=== PATIENT | female | born 1960 | race Caucasian/White ===

== ENCOUNTER 2017-03-29 11:51 | Emergency (ER) | payer MEDICAID ==
[2017-03-29 12:01] VITALS: TEMP 98.6; BMI 35.2
--- NOTE | 2017-03-29 12:23 | ED PDOC ---
Arrival/HPI - General Chief Complaint: Breast Problem Time Seen by Provider: 03/29/17 12:14 Historian: Patient - History of Present Illness Narrative History of Present Illness (Text): 03/29/17 12:19 A 56 year old female, who denies any past medical history, presents to the emergency department complaining of retrosternal chest pain since earlier this morning. History obtained through scribe who translated for patient. Patient reports she had a mammogram performed today but does not believe that is whats causing her pain. She is also concerned of right upper extremity pain for 1 week. Patient denies any injury, trauma, breast discomfort, fever, chills, nausea, vomiting, diarrhea, abdominal pain, shortness of breath or any other complaints. PMD: Dr. Orozco Time/Duration: 1 week (RUE pain), Other (chest pain this morning) Symptom Course: Unchanged Quality: Other Context: Other Past Medical History - Provider Review Nursing Documentation Reviewed: Yes - Past History Past History: No Previous - Infectious Disease Hx of Infectious Diseases: None - Tetanus Immunization Tetanus Immunization: Unknown - Reproductive Menopause: Yes - Past Medical History Past Medical History: No Previous - Cardiac Hx Pacemaker: No - Neurological Hx Paralysis: No - Hematological/Oncological Hx Blood Transfusions: No Hx Blood Transfusion Reaction: No - Musculoskeletal/Rheumatological Hx Musculoskeletal Disorders: Yes - Psychiatric Hx Emotional Abuse: No Hx Physical Abuse: No Hx Substance Use: No - Past Surgical History Past Surgical History: No Previous - Anesthesia Hx Anesthesia Reactions: No Hx Malignant Hyperthermia: No - Suicidal Assessment Feels Threatened In Home Enviroment: No Family/Social History - Physician Review Nursing Documentation Reviewed: Yes Family/Social History: No Known Family HX Smoking Status: Former Smoker Hx Alcohol Use: No Hx Substance Use: No Hx Substance Use Treatment: No Allergies/Home Meds Allergies/Adverse Reactions: Allergies No Known Allergies Allergy (Verified 03/29/17 12:01) Home Medications: Home Meds Medication Instructions Recorded Confirmed No Known Home Med 03/29/17 03/29/17 Physical Exam - Physical Exam Narrative Physical Exam (Text): - Review of Systems Constitutional: Normal. absent: Fatigue, Weight Change, Fevers Eyes: Normal ENT: Normal Respiratory: Normal absent: SOB, Cough, Sputum Cardiovascular: (+) Chest pain absent: Palpitations, Syncope Gastrointestinal: Normal absent: Abdominal pain, Diarrhea, Nausea, Vomiting Genitourinary: Normal. absent: Dysuria, Frequency, Hematuria Musculoskeletal: (+) RUE pain absent: Arthralgias, Back Pain, Neck Pain Skin: Normal Neurological: Normal absent: Focal Weakness Endocrine: Normal Hemo/Lymphatic: Normal Psychiatric: Normal - Physical exam Patient appears age appropriate, speaking full sentences without difficulty - Systems Exam Head: Present: Atraumatic, Normocephalic Pupils: Present: PERRL Extraocular Muscles: Present: EOMI Conjunctiva: Present: Normal Mouth: Present: Moist Mucous Membranes Neck: Present: Normal Range of Motion. No: MIDLINE TENDERNESS, Paraspinal Tenderness Respiratory/Chest: Present: Clear to Auscultation, Good Air Exchange. No: Respiratory Distress, Accessory Muscle Use, Tachypnic Cardiovascular: Present: Regular Rate and Rhythm, Normal S1, S2, Peripheral Pulses Present. No: Murmurs Abdomen: Present: Normal Bowel Sounds, No: Tenderness, Peritoneal Signs, Rebound, Guarding, Distention Back: Present: Normal Inspection. No: Midline Tenderness, Paraspinal Tenderness Upper Extremity: Present: Normal Inspection. RUE with full active and passive ROM, distal neurovasc fully intact, 5/5 strength No: Cyanosis, Edema Lower Extremity: Present: Normal Inspection. No: Edema Neurological: Present: GCS=15, Speech Normal, cranial nerves II through XII fully intact with no cerebellar abnormality, neuro-sensory fully intact. No focal neurological deficits. Skin: Present: Warm, Dry, Normal Color. No: Rashes Lymphatic: Present: OX3, NI, NC Psychiatric: Present: Alert, Oriented x 3, Normal Insight, Normal Concentration Vital Signs Reviewed: Yes Vital Signs Temp Pulse Resp BP Pulse Ox 03/29/17 11:54 98.6 F 65 16 146/88 96 Temperature: Afebrile Blood Pressure: Normal Pulse: Regular Respiratory Rate: Normal Appearance: Positive for: Well-Appearing, Non-Toxic, Comfortable Pain Distress: None Mental Status: Positive for: Alert and Oriented X 3 Medical Decision Making ED Course and Treatment: 03/29/17 12:18 Impression: A 56 year old female with chest pain. Physical exam unremarkable. Pt denies hx of htn, dm, smoking, dislipidemia. Plan: -- Chest xray -- EKG -- Labs -- Aspirin and Nitroglycerin -- Reassess and disposition Progress Notes: EKG shows NSR at [address]-segment elevations, normal intervals. Interpreted by me. 03/29/17 12:40 Patient states she is unable to stay in the emergency room and is refusing second set of blood work. Patient also refusing to be observed in the hospital. I have discussed the risks of refusing further treatment and testing, patient expresses understanding. Patient states she will follow up with a automatic glove turner and former outpatient. pt's HEART score low. cardiac enzymes and an EKG ordered Patient verbalized understanding that even if these tests are normal, symptoms may still be a warning sign of a future heart attack and it is very important for patient to arrange outpatient cardiology follow up 03/29/17 14:01 Chest X-ray read and interpreted by me, which shows no cardiomegaly, no pneumothorax, no effusions. 03/29/17 14:03 troponin negative pt again declined further obs in the ED and in the hospital states she is pain free and wants to be dc'd home Pt states she understands to return to the ER right away for new or worsening symptoms or for inability to f/u with PMD or specialist as instructed. Patient states that she fully agrees with and understands discharge instructions. States that she agrees with the plan and disposition. Verbalized and repeated discharge instructions and plan. I have given the patient opportunity to ask any additional questions. 03/29/17 14:09 repeat ekg with no evolving changes - Lab Interpretations Lab Results: 03/29/17 12:32 03/29/17 12:32 Lab Results 03/29/17 12:32: Sodium 143, Potassium 3.5 L, Chloride 105, Carbon Dioxide 28, Anion Gap 14, BUN 18, Creatinine 0.7, Est GFR ( Amer) > 60, Est GFR (Non- Af Amer) > 60, Random Glucose 101, Calcium 9.1, Total Bilirubin 0.5, AST 25, ALT 29, Alkaline Phosphatase 76, Lactate Dehydrogenase 466, Total Creatine Kinase 74, Troponin I < 0.01, Total Protein 7.8, Albumin 4.0, Globulin 3.8, Albumin/Globulin Ratio 1.1 03/29/17 12:32: PT 10.6, INR 0.98, APTT 25.7 03/29/17 12:32: WBC 7.1 D, RBC 4.50, Hgb 13.6, Hct 41.2, MCV 91.6, MCH 30.2, MCHC 33.0, RDW 13.4, Plt Count 247, MPV 10.3, Gran % 55.7, Lymph % (Auto) 30.5, Dunn % (Auto) 9.0 H, Eos % (Auto) 3.7, Baso % (Auto) 1.1, Gran # 3.94, Lymph # 2.2, Dunn # 0.6, Eos # 0.3, Baso # 0.08 I have reviewed the lab results: Yes - RAD Interpretation Radiology Orders: 03/29/17 12:18 CHEST PORTABLE [RAD] Stat - Medication Orders Current Medication Orders: Discontinued Medications Aspirin (Aspirin Chewable) 324 mg PO STAT STA Stop: 03/29/17 12:17 Last Admin: 03/29/17 12:34 Dose: 324 mg Nitroglycerin (Nitrostat Sl Tab) 0.3 mg SL STAT STA Stop: 03/29/17 12:17 Last Admin: 03/29/17 12:34 Dose: 0.3 mg - Scribe Statement The provider has reviewed the documentation as recorded by the Lauri Valadez Provider Scribe Attestation: All medical record entries made by the Rickyibkaris were at my direction and personally dictated by me. I have reviewed the chart and agree that the record accurately reflects my personal performance of the history, physical exam, medical decision making, and the department course for this patient. I have also personally directed, reviewed, and agree with the discharge instructions and disposition. Disposition/Present on Arrival - Present on Arrival Any Indicators Present on Arrival: No History of DVT/PE: No History of Uncontrolled Diabetes: No Urinary Catheter: No History of Decub. Ulcer: No History Surgical Site Infection Following: None - Disposition Have Diagnosis and Disposition been Completed?: Yes Diagnosis: Chest pain Disposition: HOME/ ROUTINE Disposition Time: 14:06 Patient Plan: Discharge Patient Problems: Current Active Problems Problem Status Onset Chest pain Acute Condition: GOOD Discharge Instructions (ExitCare): Chest Pain (ED) Additional Instructions: PLEASE RETURN TO THE EMERGENCY DEPARTMENT FOR NEW OR WORSENING SYMPTOMS. RETURN RIGHT AWAY IF YOU CANNOT FOLLOW UP WITH YOUR PRIMARY CARE DOCTOR, CLINIC, OR SPECIALIST IN 1-2 DAYS. Referrals: Thalia Orozco DO [Primary Care Provider] - Follow up with primary Moe Henderson MD [Staff Provider] - Follow up with primary Mau Barreto MD [Staff Provider] - Follow up with primary Forms: [employer] ([place])
[2017-03-29 12:45] LABS: BASO # 0.08 K/mm3 (0.0-2.0); BASO % 1.1 % (0.0-3.0); EOS # 0.3 (0.0-0.7); EOS % 3.7 % (1.5-5.0); GRAN # 3.94 (1.4-6.5); GRAN % 55.7 % (50.0-68.0); HEMOGLOBIN 13.6 gm/dL (12.0-16.0); LYMPH # 2.2 (1.2-3.4); LYMPH % 30.5 % (22.0-35.0); MEAN CELL VOLUME 91.6 fL (80.0-105.0); MEAN CORPUSCULAR HEMOGLOBIN 30.2 pg (25.0-35.0); MEAN PLATELET VOLUME 10.3 fl (7.0-11.0); MONO # 0.6 (0.1-0.6); PLATELET COUNT 247 10^3/uL (120.0-450.0); RED CELL DISTRIBUTION WIDTH 13.4 % (11.5-14.5); WHITE BLOOD COUNT 7.1 10^3/ul (4.5-11.0)
[2017-03-29 12:50] LABS: ALB/GLOB RATIO 1.1 (1.1-1.8); ALT/SGPT 29 U/L (7-56); AST/SGOT 25 U/L (15-39); BLOOD UREA NITROGEN 18 mg/dL (7-21); CALCIUM 9.1 mg/dL (8.4-10.5); GFR AFRICAN-AMERICAN > 60; GFR NON-AFRICAN AMERICAN > 60
[2017-03-29 12:57] LABS: INR 0.98 (0.93-1.08); PARTIAL THROMBOPLASTIN TIME 25.7 Seconds (23.7-30.8); PROTHROMBIN TIME 10.6 Seconds (9.9-11.8)
[2017-03-29 13:12] LABS: TROPONIN I < 0.01 ng/mL
[2017-03-29 14:17] VITALS: BP 94/62; PULSE 79; RESP 18; O2SAT 100
--- NOTE | 2017-03-29 15:18 | CARD ---
APPROVED REPORT EKG Measurement Heart [id number] <Conclusion> Sinus bradycardia Otherwise normal ECG
--- NOTE | 2017-03-29 17:23 | RAD ---
HISTORY: cp COMPARISON: No prior. FINDINGS: LUNGS: No active pulmonary disease. PLEURA: No significant pleural effusion identified, no pneumothorax apparent. CARDIOVASCULAR: Normal. OSSEOUS STRUCTURES: No significant abnormalities. VISUALIZED UPPER ABDOMEN: Normal. OTHER FINDINGS: None. IMPRESSION: No acute cardiopulmonary disease.
== END 2017-03-29 14:20 | disposition home or self-care (01) ==
LOC: ED 11:51
DX: R07.9 Chest pain, unspecified (principal)

== ENCOUNTER 2018-02-14 19:24 | Emergency (ER) | payer MEDICAID ==
[2018-02-14 19:24] VITALS: BMI 35.2
[2018-02-14 19:41] VITALS: TEMP 98.3; O2SAT 98
[2018-02-14] MEDS ORDERED: Amoxicillin-Clav 875-125 mg Tab PO STA (19:55)
--- NOTE | 2018-02-14 19:55 | ED PDOC ---
Arrival/HPI - General Chief Complaint: ENT Problem Time Seen by Provider: 02/14/18 19:28 Historian: Patient - History of Present Illness Narrative History of Present Illness (Text): you were treated in the ED today for right lower eyelid pain and was using q- tips and developed secondarily left ear pain but otherwise without any trauma or injury/discharge/change in hearing/change in vision/ringing/nausea/vomiting/ headache/dizziness/difficulty breathing/chest pain/abdomen pain/numbness/ tingling/loss of limb function/pain with urination. Time/Duration: Other (2 days) Symptom Onset: Gradual Symptom Course: Unchanged Quality: Aching Severity Level: 2 Activities at Onset: Rest Context: Sitting Past Medical History - Provider Review Nursing Documentation Reviewed: Yes - Travel History Have you recently traveled outside [place] w/in the past 3 mons?: No - Past History Past History: No Previous - Infectious Disease Hx of Infectious Diseases: None - Tetanus Immunization Tetanus Immunization: Unknown - Reproductive Menopause: Yes - Past Medical History Past Medical History: No Previous - Cardiac Hx Pacemaker: No - Neurological Hx Paralysis: No - Hematological/Oncological Hx Blood Transfusions: No Hx Blood Transfusion Reaction: No - Musculoskeletal/Rheumatological Hx Musculoskeletal Disorders: Yes - Psychiatric Hx Emotional Abuse: No Hx Physical Abuse: No Hx Substance Use: No - Past Surgical History Past Surgical History: No Previous - Anesthesia Hx Anesthesia: No Hx Anesthesia Reactions: No Hx Malignant Hyperthermia: No - Suicidal Assessment Feels Threatened In Home Enviroment: No Family/Social History - Physician Review Nursing Documentation Reviewed: Yes Family/Social History: No Known Family HX Smoking Status: Former Smoker Hx Alcohol Use: No Hx Substance Use: No Hx Substance Use Treatment: No Allergies/Home Meds Allergies/Adverse Reactions: Allergies No Known Allergies Allergy (Verified 02/14/18 19:42) Home Medications: Home Meds Medication Instructions Recorded Confirmed Celecoxib [celeBREX] 1 tab PO DAILY 02/14/18 02/14/18 Phentermine HCl [Phentermine HCl] 1 tab PO DAILY 02/14/18 02/14/18 Review of Systems - Review of Systems Constitutional: Normal Eyes: Other (right lower eyelide pain) ENT: Other (left ear pain) Respiratory: Normal Cardiovascular: Normal Gastrointestinal: Normal Genitourinary Female: Normal Musculoskeletal: Normal Skin: Normal Neurological: Normal Endocrine: Normal Hemo/Lymphatic: Normal Psychiatric: Normal Physical Exam Vital Signs Reviewed: Yes Vital Signs Temp Pulse Resp BP Pulse Ox 02/14/18 19:37 98.3 F 88 17 118/79 98 Temperature: Afebrile Blood Pressure: Hypertensive Pulse: Regular Respiratory Rate: Normal Appearance: Positive for: Well-Appearing, Non-Toxic, Comfortable Pain Distress: None Mental Status: Positive for: Alert and Oriented X 3 - Systems Exam Head: Present: Atraumatic, Normocephalic Pupils: Present: PERRL, Other ( good vision 20/20 in both eyes with mild right lower eyelid swelling but no specific fluctuance/crepitus and no pain with moving eyes and no foreign bodies and left ear with mild canal irritation) Extroacular Muscles: Present: EOMI Conjunctiva: Present: Normal Ears: Present: Other (left ear with mild canal irritation and tm bulge but no foreign bodies or necrosis) Mouth: Present: Moist Mucous Membranes Pharnyx: Present: Normal Nose (External): Present: Atraumatic Nose (Internal): Present: Normal Inspection Neck: Present: Normal Range of Motion Respiratory/Chest: Present: Clear to Auscultation, Good Air Exchange Cardiovascular: Present: Regular Rate and Rhythm Abdomen: No: Tenderness, Distention, Normal Bowel Sounds, Peritoneal Signs, Rebound, Guarding, McBurney's Point Tender, Rovsing's Sign Present, Hernias, Feeding Tubes, Ostomy Tubes, Mass/Organomegaly, Scars, Other Back: Present: Normal Inspection Upper Extremity: Present: Normal Inspection Lower Extremity: Present: Normal Inspection Neurological: Present: GCS=15, CN II-XII Intact, Speech Normal, Motor Func Grossly Intact Skin: Present: Warm, Other (see eye) Psychiatric: Present: Alert, Oriented x 3, Normal Insight, Normal Concentration Medical Decision Making ED Course and Treatment: you were treated in the ED today for right lower eyelid pain and was using q- tips and developed secondarily left ear pain but otherwise without any trauma or injury/discharge/change in hearing/change in vision/ringing/nausea/vomiting/ headache/dizziness/difficulty breathing/chest pain/abdomen pain/numbness/ tingling/loss of limb function/pain with urination. You were otherwise breathing easily, pink moist lips, talking easily, good strength/sensation, alert/oriented, walking easily, clear lungs, no abdomen tenderness, good vision 20/20 in both eyes with mild right lower eyelid swelling but no specific fluctuance/crepitus and no pain with moving eyes and no foreign bodies and left ear with mild canal irritation and tm bulge but no foreign bodies or necrosis, no fever temp 98.3, stable heart rate 88, stable breathing rate 17, excellent oxygen level 98% room air, elevated blood pressure 118/79 which we recommend repeat in 2-3 days primary care office to determine further treatment, augmentin, motrin, observation done in the ED with improvement, counselled to use warm compress 4-5 times per day on the right lower eyelid, stop using q- tips in the ears and when showering keep cotton ball in ears to keep dry for 7- 10 days and monitor symptoms and thus discharged home. 1. Recommend motrin as directed for pain. 2. Recommend augmentin as directed for infection control. Ofloxaxin as directed for left ear infection control. 3. Recommend follow-up primary care 2-3 days to review symptoms, referral to ophthalmology clinic and ear nose throat clinic as directed. 4. If any worsening pain, fever, chills, nausea, vomiting, difficulty breathing, numbness, loss of limb function, pain with urination or any medical condition then return to the ED. 02/14/18 20:02 02/14/18 20:07 Reassessment Condition: Re-examined, Improved - Medication Orders Current Medication Orders: Cephalexin Monohydrate (Keflex) 500 mg PO STAT STA PRN Reason: Protocol Stop: 02/14/18 19:49 Ibuprofen (Motrin Tab) 800 mg PO STAT STA Stop: 02/14/18 19:49 Disposition/Present on Arrival - Present on Arrival Any Indicators Present on Arrival: No History of DVT/PE: No History of Uncontrolled Diabetes: No Urinary Catheter: No History of Decub. Ulcer: No History Surgical Site Infection Following: None - Disposition Have Diagnosis and Disposition been Completed?: Yes Diagnosis: Stye, Otitis externa Disposition: HOME/ ROUTINE Disposition Time: 20:07 Patient Plan: Discharge Condition: IMPROVED Discharge Instructions (ExitCare): Stye (Hordeolum), Outer Ear Infection (DC) Additional Instructions: you were treated in the ED today for right lower eyelid pain and was using q- tips and developed secondarily left ear pain but otherwise without any trauma or injury/discharge/change in hearing/change in vision/ringing/nausea/vomiting/ headache/dizziness/difficulty breathing/chest pain/abdomen pain/numbness/ tingling/loss of limb function/pain with urination. You were otherwise breathing easily, pink moist lips, talking easily, good strength/sensation, alert/oriented, walking easily, clear lungs, no abdomen tenderness, good vision 20/20 in both eyes with mild right lower eyelid swelling but no specific fluctuance/crepitus and no pain with moving eyes and no foreign bodies and left ear with mild canal irritation and tm bulge but no foreign bodies or necrosis, no fever temp 98.3, stable heart rate 88, stable breathing rate 17, excellent oxygen level 98% room air, elevated blood pressure 118/79 which we recommend repeat in 2-3 days primary care office to determine further treatment, augmentin, motrin, observation done in the ED with improvement, counselled to use warm compress 4-5 times per day on the right lower eyelid, stop using q- tips in the ears and when showering keep cotton ball in ears to keep dry for 7- 10 days and monitor symptoms and thus discharged home. 1. Recommend motrin as directed for pain. 2. Recommend augmentin as directed for infection control. Ofloxaxin as directed for left ear infection control. 3. Recommend follow-up primary care 2-3 days to review symptoms, referral to ophthalmology clinic and ear nose throat clinic as directed. 4. If any worsening pain, fever, chills, nausea, vomiting, difficulty breathing, numbness, loss of limb function, pain with urination or any medical condition then return to the ED. Prescriptions: Amoxicillin/Clavulanate [Augmentin 875 MG-125 MG] 1 tab PO Q12 7 Days #14 tab Ofloxacin Otic 0.3% [Floxin 0.3% Otic Soln] 1 drop .ROUTE BID 7 Days #1 bottle
[2018-02-14 20:14] VITALS: BP 116/68; PULSE 90; RESP 18
== END 2018-02-14 20:25 | disposition home or self-care (01) ==
LOC: ED 19:24
DX: H00.022 Hordeolum internum right lower eyelid (principal); H60.92 Unspecified otitis externa, left ear